=== PATIENT | female | born 1995 | race Caucasian/White ===

== ENCOUNTER 2024-09-26 08:52 | Emergency (ER) | payer BC, SELFPAY ==
[2024-09-26 08:53] VITALS: BP 134/89
--- NOTE | 2024-09-26 09:09 | ED.GENMED ---
History of Present Illness
General
Chief Complaint: Abdominal Pain
Source: patient
Exam Limitations: none
Time Seen by Provider: 09/26/24 08:56
History of Present Illness
History of Present Illness:
29yoF with a history of ovarian cysts, anxiety, and depression presenting for evaluation of abdominal pain. Patient started to have abdominal cramping last night. She reports an abrupt onset of severe pain in her LLQ around 7am this morning. She
is worried that she may have ruptured an ovarian cyst although has never had this severe of pain before. Pain is starting to radiate to her left thigh and lower back. She is nauseous but denies any vomiting. She states she is unable to get in a
comfortable position. She is otherwise asymptomatic and denies any fevers, diarrhea, constipation, dysuria, difficulty urinating. Patient recently started a new control pill about a month ago. She started her placebo pill 2 days ago. She
also has an IUD in place and has not a menstrual period in several years. She follows with [facility].
Phy Exam
Physical Exam
Physical Exam:
Patient writhing around in pain, appears uncomfortable
General Physical Exam
General Presentation: moderate distress
General Skin: warm and dry
General Habitus: normal
General Mental: alert
ENT Exam
ENT Exam: normocephalic
Eye Exam
Eye Exam: conjunctiva normal
Cardiovascular Exam
Cardiovascular Exam: tachycardia
Pulmonary Exam
Pulmonary Exam: lungs clear, no respiratory distress, no rales, no crackles and no rhonchi
Gastrointestinal Exam
Gastrointestinal Exam: non tender, soft, non distended and no cva tenderness
Neurological Exam
Neurological Exam: alert
Maria Elena Coma Scale
Eye Opening: Spontaneous
Verbal Response: Oriented
Motor Response: Obeys Commands
GCS Total Score: 15
Skin Exam
Skin Exam: normal color and warm/dry
Course
Orders/Labs/Results
Orders:
Orders
09/26/24 09:02
Test Result ONCE
09/26/24 09:03
0.9% Sodium Chloride 1000 ml [Nss] 1,000 ml IV BOLUS
HYDROmorphone [Dilaudid] 0.5 mg IV NOW STA
Ketorolac [Toradol] 15 mg IV NOW STA
09/26/24 09:07
Ondansetron Injectable [Zofran] 4 mg IV NOW STA
09/26/24 09:10
Complete Blood Count/With Diff Urgent
Comprehensive Metabolic Panel Urgent
HCG, Serum Qualitative Screen Urgent
Lipase Urgent
Urinalysis Reflex To Culture Urgent
Date Specimen was Collected: 09/26/24
Time Specimen was Collected: 09:02
Urine Microscopic Reflex Cult Urgent
Urine Culture Urgent
OSMAN Source: U
Specimen Description:
Date Specimen was Collected: 09/26/24
Time Specimen was Collected: 09:02
US Pelvis Transvaginal Only Stat
Comment:
Reason For Exam: Severe LLQ pain, r/o ovarian torsion
09/26/24 10:51
CT Abd/pel Without Iv Or Oral Urgent
Comment:
Reason For Exam: LLQ pain, suspected stone
Abnormal Lab Results
09/26/24
09:10
Urine Ketones 3+ A
(Negative)
Urine Bilirubin 1+ A
(Negative)
Leukocyte Esterase Rfl 1+ A
(Negative)
Urine Bacteria (Reflex) Few A
(Negative)
Urine Albumin (Reflex) 2+ A
(Neg - Trace)
09/26/24 09:10
09/26/24 09:10
Vital Signs
Initial and Last Documented VS:
Initial Vital Signs
Temp Pulse Resp BP Pulse Ox
98.0 F 134 18 134/89 98
09/26/24 08:53 09/26/24 08:53 09/26/24 08:53 09/26/24 08:53 09/26/24 08:53
Last Documented Vital Signs
Temp Pulse Resp BP Pulse Ox
98.0 F 89 18 104/65 99
09/26/24 08:53 09/26/24 11:01 09/26/24 11:01 09/26/24 11:01 09/26/24 11:01
MDM/Problems Addressed
Differential Diagnosis Includes:
29yoF here with LLQ pain. Abrupt onset of pain at 7am. Worried about a ruptured ovarian cyst. +Nausea. HR 134 in triage. Remainder vitals are stable. Patient is writhing around in pain on exam. Abdominal exam is relatively benign. Differential
diagnosis includes but is not limited to: Ovarian cyst, ovarian torsion, kidney stone, constipation, nonspecific abdominal pain
Initial ED plan: Check abdominal labs, hCG, UA. Will send patient for STAT transvaginal ultrasound due to concern for ovarian torsion. IV Dilaudid, Toradol, Zofran, and fluid bolus for symptoms.
*Critical Care Note
Total Time (30-74mins, 75-104mins- exclusive of procedures): Not Applicable
Update Note
Update Note:
Labs unremarkable including normal white count, renal function, LFTs. hCG negative. No overt signs of infection on urinalysis. Transvaginal ultrasound negative for acute findings. No evidence ovarian cyst and expected Doppler flow noted
bilaterally. CT without contrast subsequently added due to concern for kidney stone. Imaging shows air-fluid levels throughout normal caliber small bowel loops diffusely, possible enteritis or ileus. No other acute findings seen and appendix is
normal. A pancreatic cystic lesion seen incidentally for which outpatient MRI is recommended. Patient informed of this finding and was provided with a copy of her radiology report. She is feeling significantly improved on reassessment and pain is
minimal. No indication for hospitalization. Supportive care reviewed and prescription provided for Zofran. Advised close follow-up with PCP and ED return precautions discussed. Patient in agreement with plan and was discharged in stable
condition.
ED Attending Note
-
Portions of this chart may have been created with voice recognition software.� Occasional wrong word or��sound alike� substitutions may have occurred due to the inherent limitations of voice recognition software.
Discharge Plan
Departure
Patient Disposition: Home (Routine Discharge)
Date of Disposition: 09/26/24
Time of Disposition: 12:14
Patient with high blood pressure during this ER visit?: No
Discharge Problem:
Left lower quadrant abdominal pain, Nausea, Pancreatic lesion
Instructions: Abdominal Pain
Prescriptions:
New
ondansetron 4 mg tablet,disintegrating
4 mg PO Q6H PRN (Reason: nausea and vomiting) Qty: 20 0RF
No Action
metaxalone [Skelaxin] 800 MG tablet
800 mg PO .3-4 TIMES DAILY PRN PRN (Reason: MUSCLE SPASM/TIGHTNESS) Qty: 15 0RF
Referrals:
Omid Valderrama MD [Family Provider] -
Activity Restrictions/Additional Instructions:
Take Zofran as needed for nausea. Take Tylenol and Motrin as needed for pain.
Please follow-up with your family doctor within 2 to 3 days. Return to the ER immediately with any new or worsening symptoms including fevers or severe pain.
Interventions
Interventions:
*Risk Screen - Suicide Last Done: 09/26/24 08:53
*General Assessment Last Done: 09/26/24 08:53
*Neglect/Abuse Screening Last Done: 09/26/24 08:53
*ED- Fall Risk Assessment Last Done: 09/26/24 09:33
*ED COVID-19 Vaccine History Last Done: 09/26/24 09:33
*Nursing Disposition Last Done: 09/26/24 12:32
US-Qruzww-Bkymfqbzrv Assessment Last Done: 09/26/24 09:33
Discharge Date and Time
Discharge Date/Time: 09/26/24 13:01
Print Language: [email or web address]
[2024-09-26] MEDS: NSS 1000 IV (09:10)
[2024-09-26] MEDS: ZOFRAN 4 MG IV (09:12)
[2024-09-26] MEDS: DILAUDID 0.5 MG IV (09:13)
[2024-09-26] MEDS: TORADOL 15 MG IV (09:14)
[2024-09-26 09:18] LABS: % Basophils 1.3 % (0-2); % Eosinophils 1.7 % (0-6); % Immature Granulocytes 0.3 % (0-0.5); % Lymphocytes 22.9 % (20.5-51.1); % Monocytes 8.2 % (1.7-9.3); % Neutrophils 65.6 % (42.2-75.2); Absolute Basophils 0.1 10^3/uL (0-0.2); Absolute Eosinophils 0.1 10^3/uL (0-0.7); Absolute Lymphocytes 1.6 10^3/uL (1.2-3.4); Absolute Monocytes 0.6 10^3/uL (0.1-0.6); Absolute Neutrophils 4.6 10^3/uL (1.4-6.5); Mean Corp Hgb Conc. 34.1 g/dL (33.0-37.0); Mean Corpuscular Hgb 29.5 pg (27.0-31.0); Mean Corpuscular Volume 86.4 fL (81.0-99.0); Mean Platelet Volume 10.1 fL (7.4-10.4); Nucleated Red Blood Cells % 0 %; Platelet Count 322 10^3/uL (130-400); Red Blood Cell Count 5.09 10^6/uL (4.20-5.40); Red Cell Dist. Width 12.3 % (11.5-14.5)
[2024-09-26 09:31] LABS: HCG, Serum Qualitative Screen Negative
[2024-09-26 09:34] LABS: ALT (SGPT) 14 U/L (0-35); AST (SGOT) 18 U/L (14-36); Albumin 4.1 g/dl (3.5-5.0); Alkaline Phosphatase 59 U/L (38-126); Blood Urea Nitrogen 15 mg/dl (7-17); Carbon Dioxide 22 mmol/L (22-30); Chloride 107 mmol/L (98-107); Glucose 97 mg/dl (70-99); Lipase 224 U/L (23-300); Potassium 4.1 mmol/L (3.5-5.1); Sodium 143 mmol/L (135-145); Total Bilirubin 0.8 mg/dl (0.2-1.3); Total Protein 7.1 g/dl (6.3-8.2); eGFR > 60.00
[2024-09-26 11:01] VITALS: BP 104/65
[2024-09-26 11:18] LABS: Urine Albumin 2+ (Neg - Trace); Urine Bilirubin 1+ (Negative); Urine Character Clear (Clear); Urine Color Yellow; Urine Glucose Negative (Negative); Urine Ketone 3+ (Negative); Urine Leukocyte 1+ (Negative); Urine Nitrite Negative (Negative); Urine Occult Blood Negative (Negative); Urine Specific Gravity 1.015 (<1.030); Urine Urobilinogen 1+ (Neg - 1+)
[2024-09-26 11:46] LABS: Urine Bacteria Few (Negative); Urine Red Blood Cell 0-2 /HPF (0-2)
== END 2024-09-26 13:01 | disposition home or self-care (01) ==
LOC: EMR 08:52
PROVIDERS: Physician Assistant; EMERGENCY PHYSICIAN Emergency Medicine; FAMILY PHYSICIAN Family Medicine
DX: R10.32 Left lower quadrant pain (principal); R11.0 Nausea; K86.9 Disease of pancreas, unspecified
CPT/HCPCS: 99284; 96374; 96375; 96361; 74176; 76830; 80053; 81003; 81015; 83690; 84703; 85025; 87086